=== PATIENT | female | born 1975 | race Caucasian/White ===

== ENCOUNTER 2018-05-01 10:14 | Emergency (ER) | payer OTHER ==
[~2018-05-01] VITALS: Ht 165.1 cm; Wt 104.3 kg
[~2018-05-01 10:14] MED LIST: ACETAMINOPHEN-1 EAC1 PO; ALLEGRA ALLERG180 MG PO; ALLEGRA-D 12 H1 EACH PO; ALLERGY SYRING1 EAC1 IM; ANTIVERT25 MG PO; AUGMENTIN 875-1 EACH PO; CEFDINIR300 MG PO; COZAAR 25 MG TA25 MG PO; CYMBALTA60 MG PO; FLONASE 0.05%50 MCG NASAL; OMEPRAZOLE40 MG PO; ONDANSETRON HCL4 M2 PO; PERCOCET PO; PRILOSEC 20 MG20 MG PO; PROTONIX40 M1 PO; TORADOL 10 MG T10 MG PO; TRAMADOL 50 MG50 MG PO; ZANTAC 150MG T150 MG PO; ZPAK PO
[2018-05-01] MEDS ORDERED: ALLEGRA ALLERG180 MG PO (10:26)
[2018-05-01] MEDS ORDERED: CYMBALTA20 MG PO (10:26)
[2018-05-01] MEDS ORDERED: PRILOSEC 10MG C10 MG PO (10:26)
[2018-05-01 11:06] LABS: INFLUENZA A ANTIGEN None Detected (None Detect); INFLUENZA B ANTIGEN None Detected (None Detect)
[2018-05-01 11:53] VITALS: BP 128/91
== END 2018-05-01 11:54 | disposition home or self-care (01) ==
LOC: M.ERS 10:14
PROVIDERS: Nurse Practitioner Family
DX: R09.81 Nasal congestion (principal); R51 Headache; R06.02 Shortness of breath; K21.9 Gastro-esophageal reflux disease without esophagitis; Z90.49 Acquired absence of other specified parts of digestive tract; Z90.710 Acquired absence of both cervix and uterus; F17.210 Nicotine dependence, cigarettes, uncomplicated

== ENCOUNTER → 2019-04-20 | Outpatient (CLI) | payer OTHER ==
[~2019-04-20] MED LIST changes: +B12INJ IM; +CYMBALTA20 MG PO; +FLEXERIL PO; +OMEPRAZOLE 20 M20 M1 PO; +PRILOSEC 10MG C10 MG PO
== END ==
LOC: M.CT 16:48
DX: K42.9 Umbilical hernia without obstruction or gangrene (principal); M89.9 Disorder of bone, unspecified; Z90.710 Acquired absence of both cervix and uterus

== ENCOUNTER 2019-05-18 10:10 | Emergency (ER) | payer OTHER ==
[~2019-05-18] VITALS: Ht 165.1 cm; Wt 108.9 kg
[~2019-05-18 10:10] MED LIST changes: -FLEXERIL PO
[2019-05-18 10:32] LABS: ABSOLUTE BASOPHILS 0.1 thou/uL (0.0-0.2); ABSOLUTE EOSINOPHILS 0.2 thou/uL (0.0-0.7); ABSOLUTE LYMPHOCYTES 2.1 thou/uL (0.8-5.3); ABSOLUTE MONOCYTES 0.3 thou/uL (0.0-1.2); ABSOLUTE NEUTROPHILS 3.7 thou/uL (1.6-8.1); BASOPHILS 0.9 %; EOSINOPHILS 2.9 %; HEMATOCRIT 41.2 % (37.0-47.0); MCH 29.9 pg (26.0-34.0); MCHC 34.1 g/dL (28.0-37.0); MCV 87.6 fL (80.0-100.0); MONOCYTES 4.6 %; MPV 7.8 fl. (7.2-11.1); NUCLEATED RBCS 0 /100WBC; PLATELET COUNT* 296 thou/uL (150-400); POLYS 58.6 %; WBC 6.3 thou/uL (4.0-11.0)
[2019-05-18 10:43] LABS: CALCIUM 8.6 mg/dL (8.5-10.1); CREATININE 0.9 mg/dL (0.6-1.3)
[2019-05-18] MEDS ORDERED: FLEXERIL PO (10:48)
[2019-05-18] MEDS ORDERED: TRAMADOL 50 MG50 MG PO (10:48)
[2019-05-18 10:57] LABS: ALBUMIN 3.5 g/dL (3.4-5.0); CK-MB MASS 0.5 ng/mL (<0.5-3.6); MAGNESIUM 2.1 mg/dL (1.8-2.4); TOTAL BILIRUBIN 0.3 mg/dL (<0.1-1.0); TOTAL PROTEIN 6.8 g/dL (6.4-8.2)
[2019-05-18 11:13] LABS: APTT 27.5 Seconds (25.0-31.3)
[2019-05-18 12:57] VITALS: BP 117/74
--- NOTE | 2019-05-18 17:10 | EKG ---
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
== END 2019-05-18 12:57 | disposition home or self-care (01) ==
LOC: M.ERS 10:10
PROVIDERS: Family Medicine
DX: M54.6 Pain in thoracic spine (principal); K21.9 Gastro-esophageal reflux disease without esophagitis; F17.210 Nicotine dependence, cigarettes, uncomplicated; Z88.1 Allergy status to other antibiotic agents; Z88.8 Allergy status to other drugs, medicaments and biological substances; Z90.710 Acquired absence of both cervix and uterus; Z79.899 Other long term (current) drug therapy